=== PATIENT | female | born 1975 | race Caucasian/White ===

== ENCOUNTER → 2017-02-14 | Outpatient (CLI) | payer BC ==
[2013-06-04 13:53] VITALS: BP 116/59
--- NOTE | 2017-02-15 14:12 | RAD ---
HISTORY: Hip Pain. Study: Two view series left hip joint. Comparison: None. Findings: A single frontal view of the pelvis demonstrates the pelvic ring to be intact. No evidence for acute fracture, subluxation, or dislocation of the hip can be observed. Frog leg views of the hip fails t o demonstrate evidence for fracture or significant joint abnormality. No lytic and or bone forming le sions are seen. No pubic symphyseal or SI joint diastatic injury is observed. No hip joint dislocatio n or subluxation is evident. An IUD is seen in place in the lower pelvis. Should the patient's clinic al symptoms persist, follow-up MRI imaging of the hip joint is suggested. Impression: 1. Negative left hip exam for acute bony injury or fracture. Reported By:
== END | disposition home or self-care (01) ==
LOC: RAD 16:41
PROVIDERS: ATTEND Internal Medicine
DX: M25.552 Pain in left hip (principal)
CPT/HCPCS: 73501

== ENCOUNTER → 2017-08-15 | Outpatient (CLI) | payer BC ==
[2013-06-04 13:53] VITALS: BP 116/59
--- NOTE | 2017-08-16 15:37 | MRI ---
MRI left hip without contrast Indication: Left hip pain and stiffness Comparison: Radiographs 02/14/2017 Technique: Multiplanar multi sequence MR images of the left hip were obtained without contrast. Findings: There is no evidence for acute fracture, stress reaction, or suspicious marrow lesion. Ther e is irregularity and linear intermediate signal within the anterior superior labrum from approximate ly 12-3 o'clock. No large paralabral cyst. The femoroacetabular articular surfaces are grossly mainta ined. The ligamentum teres is intact. There is mild edema about the distal gluteus minimus tendon; sm all focus of fluid is noted within the tendon distally (for example image 8, series 701). The neurova scular structures are grossly normal. Impression: Abnormal signal of the anterior superior labrum concerning for tear. Correlation recommended. MR arth rography could be helpful. Partial tear/tendinosis of the distal gluteus minimus tendon. Reported By:
== END | disposition home or self-care (01) | DRG 556 ==
LOC: RAD 15:00
PROVIDERS: ATTEND Internal Medicine
DX: M25.552 Pain in left hip (principal); S76.012A Strain of muscle, fascia and tendon of left hip, initial encounter; X58.XXXA Exposure to other specified factors, initial encounter
CPT/HCPCS: 73721